=== PATIENT | female | born 1940 | race Caucasian/White ===

== ENCOUNTER → 2024-09-08 07:01 | Outpatient (REF) | payer MEDICARE, SELFPAY | LOC: MRI 07:01 | PROVIDERS: ATTENDING PHYSICIAN Internal Medicine | DX: H02.401 Unspecified ptosis of right eyelid (principal) | CPT/HCPCS: 70551 ==

== ENCOUNTER 2025-04-17 06:33 | Day surgery (SDC) | payer MEDICARE, SELFPAY | END 2025-04-17 12:11 | disposition home or self-care (01) | LOC: GI 06:33 | PROVIDERS: ATTENDING PHYSICIAN Internal Medicine Gastroenterology | DX: R12 Heartburn (principal); K44.9 Diaphragmatic hernia without obstruction or gangrene; K31.7 Polyp of stomach and duodenum; K31.89 Other diseases of stomach and duodenum | CPT/HCPCS: 43239; 88305 ==